=== PATIENT | female | born 1995 | race Caucasian/White ===

== ENCOUNTER 2021-03-15 15:53 | Emergency (ER) | payer BC ==
[2021-03-15 16:17] VITALS: RESP 18
--- NOTE | 2021-03-15 17:01 | ED ---
General Adult HPI - General Chief complaint: Recheck/Abnormal Lab/Rx Stated complaint: Out of Insulin,Type 1 Diabetic Source: patient, RN notes reviewed, old records reviewed Mode of arrival: ambulatory Limitations: no limitations - History of Present Illness Initial comments: 25-year-old white female, alert and oriented 4, presents to the emergency room with complaints of running out of her NovoLog today at noon. Patient states that she is in from out of town and the pharmacy that she normally uses is closed. Patient states that she just wants a prescription for NovoLog pen. Patient states that she has an insulin pump that it could working at her doctor's office is closed. Patient has never been to this hospital before the pharmacy that she normally uses is also closed and we are unable to contact them. Patient states she has no symptoms at this time with hyperglycemia. Denies any nausea vomiting or diarrhea. She states that she just wants a prescription for NovoLog 100 units per 10 mL pen. -: hour(s) (4) Severity scale (1-10): 0 Associated Symptoms: denies other symptoms - Related Data Allergies Allergy/AdvReac Type Severity Reaction Status Date / Time acetaminophen AdvReac none Verified 03/15/21 16:17 Review of Systems ROS Statement: Those systems with pertinent positive or pertinent negative responses have been documented in the HPI. ROS Other: All systems not noted in ROS Statement are negative. Past Medical History Past Medical History: Diabetes Mellitus History of Any Multi-Drug Resistant Organisms: None Reported Past Surgical History: No Surgical Hx Reported Past Psychological History: No Psychological Hx Reported Smoking Status: Never smoker Past Alcohol Use History: None Reported Past Drug Use History: None Reported General Exam General appearance: alert, in no apparent distress Head exam: Present: atraumatic, normocephalic, normal inspection Eye exam: Present: normal appearance, PERRL, EOMI. Absent: scleral icterus, conjunctival injection, periorbital swelling ENT exam: Present: normal exam, mucous membranes moist Neck exam: Present: normal inspection, full ROM. Absent: tenderness, meningismus, lymphadenopathy Respiratory exam: Present: normal lung sounds bilaterally. Absent: respiratory distress, wheezes, rales, rhonchi, stridor, chest wall tenderness, accessory muscle use, decreased breath sounds Cardiovascular Exam: Present: regular rate, normal rhythm, normal heart sounds. Absent: systolic murmur, diastolic murmur, rubs, gallop, clicks GI/Abdominal exam: Present: soft, normal bowel sounds. Absent: distended, te nderness, guarding, rebound, rigid Extremities exam: Present: normal inspection, full ROM, normal capillary refill. Absent: tenderness, pedal edema, joint swelling, calf tenderness Back exam: Present: normal inspection, full ROM. Absent: tenderness, CVA tenderness (R), CVA tenderness (L), muscle spasm, paraspinal tenderness, vertebral tenderness Neurological exam: Present: alert, oriented X3, CN II-XII intact Psychiatric exam: Present: normal affect, normal mood Skin exam: Present: warm, dry, intact, normal color. Absent: rash, cyanosis, diaphoretic, erythema, petechiae, pallor, mottled Course Vital Signs 03/15/21 03/15/21 16:09 17:16 Temperature 98.5 F Pulse Rate 84 Respiratory 18 18 Rate Blood Pressure 119/84 O2 Sat by Pulse 100 Oximetry Medical Decision Making - Medical Decision Making Received a phone call from patient's primary national service officer in [place], Dr. Saucedo, he states that we should provide patient with 12 units of Lantus to keep her from going into DKA and he will call a prescription in to the patient's pharmacy for a insulin pen now and have mother go pick it up today. Mother told patient she was able to obtain the pen. Glucose level in the emergency room is 219, all other electrolytes are within normal limits. UA is negative for glucose. A1c will not be resulted today. Patient will be discharged home and directed to return to the emergency room with any worsening symptoms. Spoke with Dr Nielson who is agreeable to this plan of care - Lab Data Result diagrams: 03/15/21 17:25 03/15/21 17:25 Lab Results 03/15/21 03/15/21 03/15/21 Range/Units 17:06 17:25 17:25 WBC 11.8 H (3.8-10.6) k/uL RBC 5.15 (3.80-5.40) m/uL Hgb 15.3 (11.4-16.0) gm/dL Hct 44.5 (34.0-46.0) % MCV 86.3 (80.0-100.0) fL MCH 29.6 (25.0-35.0) pg MCHC 34.3 (31.0-37.0) g/dL RDW 12.9 (11.5-15.5) % Plt Count 394 (150-450) k/uL MPV 6.6 Neutrophils % 56 % Lymphocytes % 36 % Monocytes % 3 % Eosinophils % 3 % Basophils % 1 % Neutrophils # 6.6 (1.3-7.7) k/uL Lymphocytes # 4.2 (1.0-4.8) k/uL Monocytes # 0.4 (0-1.0) k/uL Eosinophils # 0.4 (0-0.7) k/uL Basophils # 0.1 (0-0.2) k/uL Sodium (137-145) mmol/L Potassium (3.5-5.1) mmol/L Chloride (98-107) mmol/L Carbon Dioxide (22-30) mmol/L Anion Gap mmol/L BUN (7-17) mg/dL Creatinine (0.52-1.04) mg/dL Est GFR (CKD-EPI)AfAm (>60 ml/min/1.73 sqM) Est GFR (CKD-EPI)NonAf (>60 ml/min/1.73 sqM) Glucose (74-99) mg/dL POC Glucose (mg/dL) 200 H (75-99) mg/dL POC Glu Fan Mail Clerk ID Cyndie Lemus Calcium (8.4-10.2) mg/dL Total Bilirubin (0.2-1.3) mg/dL AST (14-36) U/L ALT (4-34) U/L Alkaline Phosphatase (38-126) U/L Total Protein (6.3-8.2) g/dL Albumin (3.5-5.0) g/dL Amylase (30-110) U/L Lipase (23-300) U/L Urine Color Light Yellow Urine Appearance Clear (Clear) Urine pH 6.5 (5.0-8.0) Ur Specific [place] 1.005 (1.001-1.035) Urine Protein Negative (Negative) Urine Glucose (UA) Negative (Negative) Urine Ketones Negative (Negative) Urine Blood Negative (Negative) Urine Nitrite Negative (Negative) Urine Bilirubin Negative (Negative) Urine Urobilinogen <2.0 (<2.0) mg/dL Ur Leukocyte Esterase Negative (Negative) Urine HCG, Qual (Not Detectd) 03/15/21 03/15/21 Range/Units 17:25 17:25 WBC (3.8-10.6) k/uL RBC (3.80-5.40) m/uL Hgb (11.4-16.0) gm/dL Hct (34.0-46.0) % MCV (80.0-100.0) fL MCH (25.0-35.0) pg MCHC (31.0-37.0) g/dL RDW (11.5-15.5) % Plt Count (150-450) k/uL MPV Neutrophils % % Lymphocytes % % Monocytes % % Eosinophils % % Basophils % % Neutrophils # (1.3-7.7) k/uL Lymphocytes # (1.0-4.8) k/uL Monocytes # (0-1.0) k/uL Eosinophils # (0-0.7) k/uL Basophils # (0-0.2) k/uL Sodium 138 (137-145) mmol/L Potassium 4.0 (3.5-5.1) mmol/L Chloride 99 (98-107) mmol/L Carbon Dioxide 28 (22-30) mmol/L Anion Gap 11 mmol/L BUN 10 (7-17) mg/dL Creatinine 0.52 (0.52-1.04) mg/dL Est GFR (CKD-EPI)AfAm >90 (>60 ml/min/1.73 sqM) Est GFR (CKD-EPI)NonAf >90 (>60 ml/min/1.73 sqM) Glucose 219 H (74-99) mg/dL POC Glucose (mg/dL) (75-99) mg/dL POC Glu Fan Mail Clerk ID Calcium 10.0 (8.4-10.2) mg/dL Total Bilirubin 0.3 (0.2-1.3) mg/dL AST 27 (14-36) U/L ALT 15 (4-34) U/L Alkaline Phosphatase 95 (38-126) U/L Total Protein 8.0 (6.3-8.2) g/dL Albumin 5.0 (3.5-5.0) g/dL Amylase 60 (30-110) U/L Lipase 43 (23-300) U/L Urine Color Urine Appearance (Clear) Urine pH (5.0-8.0) Ur Specific [place] (1.001-1.035) Urine Protein (Negative) Urine Glucose (UA) (Negative) Urine Ketones (Negative) Urine Blood (Negative) Urine Nitrite (Negative) Urine Bilirubin (Negative) Urine Urobilinogen (<2.0) mg/dL Ur Leukocyte Esterase (Negative) Urine HCG, Qual Not Detected (Not Detectd) Disposition Clinical Impression: Encounter for medication refill Disposition: HOME SELF-CARE Condition: Good Instructions (If sedation given, give patient instructions): Medicine Refill (ED) Additional Instructions: Return to the emergency room if worsening symptoms including hyperglycemia, nausea or vomiting. . Contact your primary care office in the morning or pharmacy for refill on her insulin prescription Is patient prescribed a controlled substance at d/c from ED?: No Referrals: Nonstaff,Physician [Primary Care Provider] - 1-2 days Time of Disposition: 18:16
[2021-03-15 17:08] LABS: Glucose,Whole Blood 200 mg/dL (75-99)
[2021-03-15 17:31] LABS: Appearance,Urine Clear (Clear); Basophils # (A) 0.1 k/uL (0-0.2); Basophils % (A) 1 %; Bilirubin,Urine Negative (Negative); Blood,Urine Negative (Negative); Color,Urine Light Yellow; Eosinophils # (A) 0.4 k/uL (0-0.7); Eosinophils % (A) 3 %; Glucose,Urine (UA) Negative (Negative); HCT 44.5 % (34.0-46.0); HGB 15.3 gm/dL (11.4-16.0); Ketones,Urine Negative (Negative); Leukocyte Esterase,Urine Negative (Negative); Lymphocytes # (A) 4.2 k/uL (1.0-4.8); Lymphocytes % (A) 36 %; MCH 29.6 pg (25.0-35.0); MCHC 34.3 g/dL (31.0-37.0); MCV 86.3 fL (80.0-100.0); Mean Platelet Volume 6.6; Monocytes # (A) 0.4 k/uL (0-1.0); Monocytes % (A) 3 %; Neutrophils # (A) 6.6 k/uL (1.3-7.7); Neutrophils % (A) 56 %; Nitrite,Urine Negative (Negative); PH, Urine 6.5 (5.0-8.0); Platelet Count 394 k/uL (150-450); Protein,Urine Negative (Negative); RBC 5.15 m/uL (3.80-5.40); RDW 12.9 % (11.5-15.5); Specific Gravity,Urine 1.005 (1.001-1.035); Urobilinogen,Urine <2.0 mg/dL (<2.0); WBC 11.8 k/uL (3.8-10.6)
[2021-03-15 17:46] LABS: ALT 15 U/L (4-34); AST 27 U/L (14-36); African American GFR (CKD) >90 (>60 ml/min/1.73 sqM); Alkaline Phosphatase 95 U/L (38-126); Amylase 60 U/L (30-110); Anion Gap 11 mmol/L; Blood Urea Nitrogen 10 mg/dL (7-17); Carbon Dioxide 28 mmol/L (22-30); Chloride 99 mmol/L (98-107); Glucose 219 mg/dL (74-99); Lipase 43 U/L (23-300); Non-African American GFR(CKD) >90 (>60 ml/min/1.73 sqM); Sodium 138 mmol/L (137-145); Total Bilirubin 0.3 mg/dL (0.2-1.3)
[2021-03-15] MEDS ORDERED: INSULIN DETEMIR (LEVEMIR) 100 UNIT/ML SYR SQ STA (18:02)
[2021-03-15 18:43] VITALS: BP 113/75; PULSE 92; TEMP 99.2
[2021-03-15 23:15] LABS: Hemoglobin A1C 6.4 % (4.0-6.0)
== END 2021-03-15 18:42 | disposition home or self-care (01) ==
LOC: EC 15:53
DX: Z76.0 Encounter for issue of repeat prescription (principal); E11.9 Type 2 diabetes mellitus without complications; Z79.4 Long term (current) use of insulin
CPT/HCPCS: 36415; 80053; 81003; 81025; 82150; 83036; 83690; 85025